=== PATIENT | female | born 1990 | race Caucasian/White ===

== ENCOUNTER 2017-03-18 21:09 | Emergency (ER) | payer MEDICAID ==
[~2017-03-18] VITALS: Ht 160 cm; Wt 50.7 kg
[~2017-03-18 21:09] MED LIST: DOCU-30 PO; HYDR-3240 PO; IBUP-1222 PO
[2017-03-18 21:11] VITALS: BP 116/72
== END 2017-03-18 22:27 | disposition home or self-care (01) ==
LOC: ED 22:21
DX: N64.4 Mastodynia (principal)
CPT/HCPCS: 99283

== ENCOUNTER 2018-05-08 11:26 | Outpatient (CLI) | payer MEDICAID ==
[~2018-05-08] VITALS: Ht 160 cm; Wt 71.0 kg
[~2018-05-08 11:26] MED LIST changes: +DOCU-131 PO; -DOCU-30 PO
[2018-05-08 12:09] VITALS: BP 121/82
[2018-05-10] MEDS ORDERED: PREN-3 PO (05:46)
== END 2018-05-08 12:31 | disposition home or self-care (01) ==
LOC: LDOP 11:26
PROVIDERS: ATTEND Obstetrics & Gynecology
DX: O26.893 Other specified pregnancy related conditions, third trimester (principal); Z3A.38 38 weeks gestation of pregnancy; R10.9 Unspecified abdominal pain
CPT/HCPCS: 59025; 99201; G0463